=== PATIENT | female | born 1935 | race Caucasian/White ===

== ENCOUNTER 2018-07-27 17:13 | Inpatient (IN) | payer BC, OTHER ==
[~2018-07-27] VITALS: Ht 162.6 cm; Wt 54.9 kg
--- NOTE | 2018-07-27 17:45 | NUR ---
Patient came in for left leg swelling x3days, found to have HR of 155 with rhythm of a.fib. Dr. Bess made aware. Patient placed on the monitor, awaiting for MD fregoso. Denies pain at this time, patient asymptomatic.
[2018-07-27] MEDS ORDERED: DILTIAZEM HCL 50 MG IV IV ONE ×7 (18:00→21:00)
[2018-07-27] MEDS ORDERED: DILTIAZEM HCL 25 MG IV ONE ×2 (18:02→20:07)
[2018-07-27 18:10] LABS: BASOPHILS % (AUTO) 0.2 % (0.0-2.0); HEMATOCRIT 43 % (33-45); HEMOGLOBIN 14.4 g/dL (11.5-14.8); LYMPHOCYTES # (AUTO) 0.4 /CMM (0.8-4.8); MEAN CORPUSCULAR HGB CONC 34 g/dl (31.0-36.0); MEAN CORPUSCULAR VOLUME 104 fL (82-100); MONOCYTES # (AUTO) 0.7 /CMM (0.1-1.30); MONOCYTES % (AUTO) 5.9 % (2.0-12.0); NEUTROPHILS # (AUTO) 11.1 /CMM (1.8-8.9); NEUTROPHILS % (AUTO) 90.9 % (43.0-81.0); PLATELET COUNT (AUTO) 149 /CMM (150-450); RED BLOOD CELL COUNT(AUTO) 4.13 MIL/uL (4.0-5.2); WHITE BLOOD COUNT (AUTO) 12.2 K/uL (4.3-11.0)
[2018-07-27 18:17] LABS: MAGNESIUM 2.2 mg/dL (1.8-2.4)
[2018-07-27 18:18] LABS: CALCIUM, SERUM 9.1 mg/dL (8.5-10.1); CARBON DIOXIDE 21 mmol/L (21-32); CHLORIDE 102 mmol/L (98-107); CREATININE 1.2 mg/dL (0.6-1.3); GLUCOSE 121 mg/dL (74-106); POTASSIUM 3.8 mmol/L (3.5-5.1); SODIUM SERUM 138 mmol/L (136-145); UREA NITROGEN, BLOOD 53 mg/dL (7-18)
--- NOTE | 2018-07-27 18:28 | NUR ---
PATIENT'S HR STILL ELEVATED RANGES FROM 140-150S, DR. MASTERS MADE AWARE AND RECEIVED ORDER TO GIVE ANOTHER DOSE OF CARDIZEM 5MG AND TO REPEAT VITALS AFTER 15 MINUTES. PATIENT ASYMPTOMATIC, NO DISTRESS, DENIES CHEST PAIN OR DISCOMFORT. US TECH AT BEDSIDE.
[2018-07-27] MEDS ORDERED: IV NS 0.9% 1,000 ML BAG IV ONE (18:30)
[2018-07-27 18:31] LABS: ALANINE AMINOTRANSFERASE 608 U/L (12-78); ALBUMIN 3.6 g/dL (3.4-5.0); ALKALINE PHOSPHATASE 107 U/L (46-116); ASPARTATE AMINOTRANSFERASE 531 U/L (15-37); B-TYPE NATRIURETIC PEPTIDE 15045 PG/ML (0-125); BILIRUBIN,DIRECT 0.8 mg/dL (0.0-0.2); BILIRUBIN,TOTAL 2.4 mg/dL (0.2-1.0); TOTAL PROTEIN, SERUM 6.7 g/dL (6.4-8.2)
--- NOTE | 2018-07-27 18:47 | NUR ---
RECEIVED VERBAL ORDER FROM DR. MASTERS TO GIVE CARDIZEM 5MG AND RECHECK VS AFTER 15 MINUTES. CARDIZEM 5MG IV GIVEN ON 1846. BP 131/93 HR141.
[2018-07-27 18:53] LABS: THYROID STIMULATING HORMONE 3.97 uIU/mL (0.358-3.74)
--- NOTE | 2018-07-27 19:02 | NUR ---
CARLOS PAGED HARDSCAPE FOREMAN KVNG CAROLINA NP
--- NOTE | 2018-07-27 19:20 | NUR ---
ENDORSED TO RESIDENT PHYSICIAN IN RADIOLOGY RN FOR BRADEN. BP AND HR TO BE RECHECKED AT 1922. PATIENT HAS RECEIVED A TOTAL DOSE OF CARDIZEM 20MG IV. IN STABLE CONDITION.
[2018-07-27] MEDS ORDERED: DIGOXIN INJ 0.5 MG/2 ML AMPUL ONE (19:25)
[2018-07-27] MEDS ORDERED: DIGOXIN INJ 0.5 MG/2 ML AMPUL IV ONE (19:30)
--- NOTE | 2018-07-27 20:24 | NUR ---
PT ADMIT TO ROOM 103
[2018-07-27] MEDS ORDERED: IV NS 0.9% 1,000 ML IV PRN (20:28)
[2018-07-27] MEDS ORDERED: Z GUARD REMEDY 2 OZ OINT TP PRN (20:30)
[2018-07-27] MEDS ORDERED: ONDANSETRON HCL/PF 4 MG/2 ML VIAL IVP PRN (20:30)
[2018-07-27] MEDS ORDERED: MAG HYDROX/AL HYDROX/SIMETH 30 ML UDC PO PRN (20:30)
[2018-07-27] MEDS ORDERED: MAGNESIUM HYDROXIDE 30 ML UDC PO PRN (20:30)
[2018-07-27] MEDS ORDERED: ACETAMINOPHEN 325 MG TABLET PO PRN (20:30)
[2018-07-27] MEDS ORDERED: HYDROCODONE/APAP 5/325MG 1 EACH TABLET PO PRN (20:30)
[2018-07-27] MEDS ORDERED: PANTOPRAZOLE 40 MG VIAL ONE (20:53)
[2018-07-27] MEDS: PANTOPRAZOLE 40 MG VIAL IV SCH (20:53)
--- NOTE | 2018-07-27 21:05 | NUR ---
ELHAM WILL BE TRANSFER TO [facility] UNIT ROOM 103 REPORT GIVEN TO ELENI. DILTIAZEM GIVEN EVERY 15 MIN. PER MD. HR RANGE TO 120'S - 140'S UPTO 150'S. PATIENT REMAINED AOX3 DENIES PAIN AT THIS TIME. REMAINED A-FIB ON TELE MONITOR. FAMILY AWARE THAT SANDOR WILLBE TRANSFER.
--- NOTE | 2018-07-27 21:09 | NUR ---
ECHO DONE AT BEDSIDE
[2018-07-27] MEDS ORDERED: DILTIAZEM HCL 25 MG IV IV ONE (21:30)
--- NOTE | 2018-07-27 21:36 | NUR ---
INITIAL ECHO SHOWED EF 30-35% WITH TRACE PERICARDIAL EFFUSION. ADVISED DR. MASTERS OF PRELIMINARY RESULTS.
[2018-07-27] MEDS ORDERED: DILTIAZEM HCL 50 MG IV ONE ×2 (21:53)
[2018-07-27] MEDS: DILTIAZEM HCL IV 125 MG in IV D5W 100 ML IV PRN (22:09)
[2018-07-28] VITALS (9 sets, daily range): BP systolic 104–142; BP diastolic 57–79
--- NOTE | 2018-07-28 00:46 | NUR ---
SANDOR TRANSFERRED TO [facility] FLOOR IN ROOM 103. NO CHANGE OF MENTAL STATUS DENIES PAIN, NO CHEST PAIN .NO SOB. LEFT WITH CARDIZEM DRIP. ENDORSED CONTINUITY OFCARE TO ELENI ARMSTRONG
--- NOTE | 2018-07-28 00:47 | NUR ---
[facility] RN NOTE PATIENT RECEIVED IN [facility] A/O X 4. PATIENT DENIES ACUTE S/S OF DISTRESS. PATIENT DENIES CHEST/ /SOB. PATIENT BREATHING EVEN UNLABORED. PATIENT HAS 20 G IN RAC, 22 G PLACED IN LFA, PATIENT RUNNING 75 ML/HR IN LFA, 15 ML/HR CARDIZEM DRIP RAC. NO S.S OF INFILTRATION/INFECTION. PATIENT HR 129 ON ADMISSION BP 112/79. PER MD ORDER HOLD CARDIZEM IF HR BELOW 80 AND SBP BELOW 100. PATIENT DENIES PAIN/ DISCOMFORT AT THIS TIME. PATIENT SKIN NOTED TO HAVE SACRAL REDNESS. MEPILEX APPLIED. PATIENT ABLE TO MOVE INDEPENDENTLY IN BED. RN WILL CONTINUE TO MONITOR.
--- NOTE | 2018-07-28 01:00 | NUR ---
RN NOTES SPOKE TO KVNG CAROLINA NP REGARDING ADMIT TO: ORDERS FOR TELEMETRY STATUS. SINCE PATIENT IS ON CARDIZEM GTT, OK TO UPGRADE TO [facility] STATUS PER PROTOCOL
--- NOTE | 2018-07-28 02:08 | NUR ---
[facility] RN NOTE CALLED OPERATING ROOM MANAGER KVNG REGAURDING POSSIBLE ANTICOAGULATION FOR VTE RISK SCORE OF 3. PER OPERATING ROOM MANAGER H&P NOTES/ AND OPERATING ROOM MANAGER VERBALIZATION, PATIENT HAS POSSIBLE GIB HOLD ANTICOAGULATION UNTIL GIB RULE OUT.
[2018-07-28] MEDS ORDERED: DILTIAZEM HCL 25 MG IV ONE ×2 (04:40→04:41)
[2018-07-28] MEDS: DILTIAZEM HCL IV 125 MG in IV D5W 100 ML IV PRN (06:31)
[2018-07-28 06:40] LABS: CALCIUM, SERUM 8.3 mg/dL (8.5-10.1); CARBON DIOXIDE 22 mmol/L (21-32); CHLORIDE 110 mmol/L (98-107); CREATININE 0.8 mg/dL (0.6-1.3); GLUCOSE 84 mg/dL (74-106); POTASSIUM 3.5 mmol/L (3.5-5.1); SODIUM SERUM 144 mmol/L (136-145); UREA NITROGEN, BLOOD 40 mg/dL (7-18)
[2018-07-28 06:43] LABS: ALANINE AMINOTRANSFERASE 484 U/L (12-78); ALBUMIN 2.7 g/dL (3.4-5.0); ALKALINE PHOSPHATASE 84 U/L (46-116); ASPARTATE AMINOTRANSFERASE 396 U/L (15-37); BILIRUBIN,DIRECT 0.4 mg/dL (0.0-0.2); BILIRUBIN,TOTAL 1.5 mg/dL (0.2-1.0); MAGNESIUM 1.8 mg/dL (1.8-2.4); PHOSPHORUS 2.7 mg/dL (2.5-4.9); TOTAL PROTEIN, SERUM 5.3 g/dL (6.4-8.2)
[2018-07-28 06:46] LABS: BASOPHILS % (AUTO) 0.1 % (0.0-2.0); EOSINOPHILS % (AUTO) 0.2 % (0.0-6.0); HEMATOCRIT 38 % (33-45); HEMOGLOBIN 12.8 g/dL (11.5-14.8); LYMPHOCYTES # (AUTO) 0.6 /CMM (0.8-4.8); LYMPHOCYTES % (AUTO) 5.2 % (20.0-44.0); MEAN CORPUSCULAR HGB CONC 34 g/dl (31.0-36.0); MEAN CORPUSCULAR VOLUME 103 fL (82-100); MONOCYTES # (AUTO) 0.8 /CMM (0.1-1.30); MONOCYTES % (AUTO) 6.6 % (2.0-12.0); NEUTROPHILS # (AUTO) 10.5 /CMM (1.8-8.9); NEUTROPHILS % (AUTO) 87.9 % (43.0-81.0); PLATELET COUNT (AUTO) 117 /CMM (150-450); RED BLOOD CELL COUNT(AUTO) 3.71 MIL/uL (4.0-5.2)
[2018-07-28 06:49] LABS: CHOLESTEROL 150 mg/dL (<200); HDL CHOLESTEROL 23 mg/dL (40-60); LDL 118 mg/dL (0-99); TRIGLYCERIDES 70 mg/dL (30-150)
--- NOTE | 2018-07-28 07:10 | NUR ---
[facility] RN OPENING NOTES RECEIVED PT LYING ON BED.ALERT/ORIENTED X4.ON TELE HR IS 115-124 WITH A FIB,IV CARDIZEM IS RUNNING WITH 15MG ON LEFT RIGHT ARM G 20.IV FLUIDS IS RUNNING ON LEFT UA G22,SITE IS CLEAN,DRY AND INTACT.NO INFILTRATION NOTED.CAN USE BEDSIDE COMMODE.NO SOB AND ACUTE DISTRESS NOTED ON ROOM AIR.BED IS IN LOW POSITION AND LOCKED.CALL LIGHT IS WITHIN REACH.WILL CONTINUE TO MONITOR THE PT CLOSELY.
[2018-07-28] MEDS: PANTOPRAZOLE 40 MG VIAL IV SCH (08:23)
[2018-07-28] MEDS ORDERED: AMIODARONE 150 MG in IV D5W 100 ML IV ONE (09:30)
[2018-07-28] MEDS ORDERED: APIXABAN 5 MG TABLET PO SCH (09:30)
[2018-07-28] MEDS ORDERED: AMIODARONE 900 MG in IV D5W 500 ML IV PRN (09:30)
[2018-07-28] MEDS ORDERED: VITA1TAB56 PO (09:40)
[2018-07-28] MEDS ORDERED: MULT1TAB73 PO (09:40)
--- NOTE | 2018-07-28 10:00 | NUR ---
[facility] RN NOTES IV AMIODARONE BOLUS 150MG/3ML @618ML/HR IS STARTED @RIGHT AC G20.BP -125/69,HR-150.NO SOB AND ACUTE DISTRESS NOTED.WILL CONTINUE TO MONITOR THE PT CLOSELY.
[2018-07-28] MEDS ORDERED: AMIODARONE 900 MG in IV D5W 482 ML IV PRN (10:30)
--- NOTE | 2018-07-28 10:30 | NUR ---
[facility] RN NOTES IV AMIODARONE 1MG/MT @33.3ML/HR IS STARTED.BP-123/69,HR-125 AND R-18.NO COMPLICATIONS NOTED.
[2018-07-28] MEDS: ALPRAZOLAM 0.25 MG TABLET PO PRN (14:27)
[2018-07-28] MEDS: CHLORHEXIDINE GLUCONATE 4% 118 ML BOTTLE TP SCH ×2 (14:45→16:36)
[2018-07-28] MEDS: RIVAROXABAN 15 MG TABLET PO SCH (16:35)
[2018-07-28 17:30] LABS: OCCULT BLOOD STOOL NEGATIVE (NEGATIVE)
--- NOTE | 2018-07-28 18:51 | NUR ---
[facility] RN CLOSING NOTES PT IS LYING ON BED WITH IV AMIODARONE 900MG @0.5MG/MT IS RUNNING WITH HR IS 122 A FIB.ALERT/ORIENTED X4.IV LINE IS IN PLACE.ON ROOM AIR,TOLERATING WELL.NO SOB AND ACUTE DISTRESS NOTED.RESPIRATION IS EVEN AND NONLABORED.ALL THE DUE MEDS ARE GIVEN.NO SIGNIFICANT CHANGES NOTED IN THE SHIFT.ENDORSED TO ELECTRONIC SYSTEM ENGINEER NATHANIEL FLORES FOR BRADEN.
--- NOTE | 2018-07-28 19:30 | NUR ---
TD RN: RECEIVED PT A/O X 3. ON R/A WT NO ACUTE DISTRESS. NO C/O PAIN. UNCONTROLLED A. FIB ON TELE MONITOR WT HR IN 120s. CONTINUE ON AMIODARONE DRIP AT 0.5MG/MIN WT NO S/S OF IV INFILTRATION. AMBULATORY AND ABLE TO SIT ON BED SIDE COMMODE. HOB AT 35 DEGREES. BED IN LOW POSITION AND LOCKED WT SR UP X 2. CALL LIGHT KEPT WITHIN REACH. WILL CONTINUE TO MONITOR.
[2018-07-29] VITALS: BP 125/73
[2018-07-29 04:00] VITALS: BP 135/62
[2018-07-29 06:26] LABS: BASOPHILS % (AUTO) 0.1 % (0.0-2.0); EOSINOPHILS % (AUTO) 0.3 % (0.0-6.0); HEMATOCRIT 38 % (33-45); HEMOGLOBIN 12.8 g/dL (11.5-14.8); LYMPHOCYTES # (AUTO) 0.5 /CMM (0.8-4.8); LYMPHOCYTES % (AUTO) 3.8 % (20.0-44.0); MEAN CORPUSCULAR HGB CONC 33 g/dl (31.0-36.0); MEAN CORPUSCULAR VOLUME 102 fL (82-100); MONOCYTES # (AUTO) 0.8 /CMM (0.1-1.30); MONOCYTES % (AUTO) 6.9 % (2.0-12.0); NEUTROPHILS # (AUTO) 10.7 /CMM (1.8-8.9); NEUTROPHILS % (AUTO) 88.9 % (43.0-81.0); PLATELET COUNT (AUTO) 101 /CMM (150-450); RED BLOOD CELL COUNT(AUTO) 3.73 MIL/uL (4.0-5.2); WHITE BLOOD COUNT (AUTO) 12.1 K/uL (4.3-11.0)
--- NOTE | 2018-07-29 06:45 | NUR ---
TD RN: TOTAL BAG OF AMIODARONE INFUSED AT THIS TIME. STILL A. FIB CONTROLLED ON TELE MONITOR. REMAINED A/O X 3-4. PLACED ON 2.5L 02 VIA NC FOR C/O OF SHORTNESS OF BREATH ALTHOUGH O2 SAT= 94% AND ABOVE. NO C/O PAIN. ALL NEEDS MET. SAFETY PRECAUTION NOTED AT ALL TIMES.
[2018-07-29 06:48] LABS: ALANINE AMINOTRANSFERASE 459 U/L (12-78); ALBUMIN 2.6 g/dL (3.4-5.0); ALKALINE PHOSPHATASE 99 U/L (46-116); ASPARTATE AMINOTRANSFERASE 314 U/L (15-37); BILIRUBIN,TOTAL 1.3 mg/dL (0.2-1.0); CALCIUM, SERUM 8.3 mg/dL (8.5-10.1); CARBON DIOXIDE 21 mmol/L (21-32); CHLORIDE 106 mmol/L (98-107); CREATININE 0.7 mg/dL (0.6-1.3); GLUCOSE 141 mg/dL (74-106); MAGNESIUM 1.7 mg/dL (1.8-2.4); PHOSPHORUS 1.5 mg/dL (2.5-4.9); POTASSIUM 3.6 mmol/L (3.5-5.1); SODIUM SERUM 137 mmol/L (136-145); TOTAL PROTEIN, SERUM 5.4 g/dL (6.4-8.2); UREA NITROGEN, BLOOD 29 mg/dL (7-18)
--- NOTE | 2018-07-29 07:30 | NUR ---
[facility] RN AM NOTES RECIEVED PT IN BED AO X 3-4, PT ON 2.5 LITERS BY NASAL CANNULA NO SOB, RESPIRATION- UNLABORED, AFIB KILLIAN RATE OF 130 ON MONITER, DENIES CHEST PAIN/ DISCOMFORT, RIGHT FOREARM GAUGE 20 FLUSHES WELL, SITE CLEAR, ON REGULAR CARDIAC DIET, SEE NURSING FLOW SHEET FOR SKIN ISSUES, USES BSC, UP WITH ASSIST, SAFETY MEASURES IN PLACE, CALL LIGHT WITHIN REACH, WILL CONTINUE TO MONITER
[2018-07-29 08:00] VITALS: BP 132/74
--- NOTE | 2018-07-29 09:30 | NUR ---
[facility] RN NOTES DUE MEDS GIVEN
[2018-07-29] MEDS: CHLORHEXIDINE GLUCONATE 4% 118 ML BOTTLE TP SCH ×3 (09:41→17:53)
[2018-07-29] MEDS ORDERED: Magnesium 1GM/D5W 100ML PREMIX 100 ML IV SCH (10:34)
--- NOTE | 2018-07-29 10:36 | NUR ---
FURNACE KEEPER NOTES TRANSFER TO TELEMETRY PER DR. DENISE
--- NOTE | 2018-07-29 11:00 | NUR ---
HYDROGRAPHICAL TECHNICAL OFFICER NOTES PT PLACED ON NPO FOR SCHEDULED MRCP AT 1300
[2018-07-29] MEDS: POTASSIUM CHLORIDE 20 MEQ TAB.PRT.SR PO SCH ×3 (11:05→14:38)
[2018-07-29] MEDS: FUROSEMIDE 40 MG/4 ML VIAL IV SCH ×3 (11:07→17:43)
[2018-07-29] MEDS: Magnesium 1GM/D5W 100ML PREMIX 100 ML IV SCH ×2 (11:08→12:42)
[2018-07-29] MEDS: IPRATROPIUM NEB FS 0.5 MG/2.5 ML AMPUL.NEB NEB SCH ×3 (11:30→19:29)
[2018-07-29 12:00] VITALS: BP 129/80
[2018-07-29] MEDS ORDERED: K PHOS NEUTRAL 250 MG TABLET PO ONE (12:00)
[2018-07-29] MEDS: DIGOXIN INJ 0.5 MG/2 ML AMPUL IV SCH ×2 (12:46→17:47)
[2018-07-29 16:00] VITALS: BP_SYST 130; BP_SYST 133; BP_DIAS 75; BP_DIAS 86
[2018-07-29] MEDS: RIVAROXABAN 15 MG TABLET PO SCH (17:52)
--- NOTE | 2018-07-29 19:30 | NUR ---
CASHIER TICKET SELLING NOTES ALL NEEDS MET. STABLE. NO OTHER SIGNIFICANT CHANGE IN CONDITION. NOT IN ANY DISTRESS. SAFETY MEASURES IN PLACE. CALL LIGHT WITHIN REACH. WILL ENDORSE TO NEXT SHIFT.
[2018-07-29 20:00] VITALS: BP 132/70
--- NOTE | 2018-07-29 20:00 | NUR ---
television production technician notes received pts in bed awake alert and responsive able to make needs known , on tele afib on the monitor , no sob no distress noted , v/s stable afebrile , all needs attended too pts with no complain of pain , kept pts clean dry and comfortable.
[2018-07-30] VITALS: BP 138/74
[2018-07-30] MEDS: IPRATROPIUM NEB FS 0.5 MG/2.5 ML AMPUL.NEB NEB SCH ×4 (00:46→19:33)
[2018-07-30] MEDS ORDERED: DIGOXIN INJ 0.5 MG/2 ML AMPUL ONE (02:41)
[2018-07-30] MEDS: DIGOXIN INJ 0.5 MG/2 ML AMPUL IV SCH (02:45)
[2018-07-30 04:00] VITALS: BP 126/69
[2018-07-30 06:37] LABS: EOSINOPHILS % (AUTO) 0.2 % (0.0-6.0); HEMATOCRIT 39 % (33-45); HEMOGLOBIN 13.2 g/dL (11.5-14.8); LYMPHOCYTES # (AUTO) 0.3 /CMM (0.8-4.8); LYMPHOCYTES % (AUTO) 2.4 % (20.0-44.0); MEAN CORPUSCULAR HGB CONC 34 g/dl (31.0-36.0); MEAN CORPUSCULAR VOLUME 102 fL (82-100); MONOCYTES % (AUTO) 7.8 % (2.0-12.0); NEUTROPHILS # (AUTO) 11.3 /CMM (1.8-8.9); NEUTROPHILS % (AUTO) 89.6 % (43.0-81.0); PLATELET COUNT (AUTO) 108 /CMM (150-450); RED BLOOD CELL COUNT(AUTO) 3.82 MIL/uL (4.0-5.2); WHITE BLOOD COUNT (AUTO) 12.6 K/uL (4.3-11.0)
[2018-07-30 06:40] LABS: ALANINE AMINOTRANSFERASE 364 U/L (12-78); ALBUMIN 2.3 g/dL (3.4-5.0); ALKALINE PHOSPHATASE 81 U/L (46-116); ASPARTATE AMINOTRANSFERASE 179 U/L (15-37); BILIRUBIN,TOTAL 1.3 mg/dL (0.2-1.0); CALCIUM, SERUM 8.2 mg/dL (8.5-10.1); CARBON DIOXIDE 26 mmol/L (21-32); CHLORIDE 106 mmol/L (98-107); CREATININE 0.7 mg/dL (0.6-1.3); GLUCOSE 103 mg/dL (74-106); MAGNESIUM 1.6 mg/dL (1.8-2.4); PHOSPHORUS 2.2 mg/dL (2.5-4.9); POTASSIUM 3.4 mmol/L (3.5-5.1); SODIUM SERUM 143 mmol/L (136-145); TOTAL PROTEIN, SERUM 5.4 g/dL (6.4-8.2); UREA NITROGEN, BLOOD 27 mg/dL (7-18)
--- NOTE | 2018-07-30 07:19 | NUR ---
telephone clerk telegraph office notes pts remain in bed asleep , no sob no distress noted ,on tele afib on the monitor , will endorse to rn day shift for continuity of care .
[2018-07-30 08:00] VITALS: BP 115/59
[2018-07-30] MEDS: POTASSIUM CHLORIDE 20 MEQ TAB.PRT.SR PO SCH ×3 (09:13→11:19)
[2018-07-30] MEDS: CHLORHEXIDINE GLUCONATE 4% 118 ML BOTTLE TP SCH ×3 (09:25→17:15)
[2018-07-30] MEDS: FUROSEMIDE 40 MG/4 ML VIAL IV SCH ×3 (09:32→17:17)
[2018-07-30] MEDS: Magnesium 1GM/D5W 100ML PREMIX 100 ML IV SCH ×2 (10:19→10:36)
[2018-07-30 12:00] VITALS: BP 133/83
[2018-07-30] MEDS ORDERED: K PHOS NEUTRAL 250 MG TABLET PO ONE (13:00)
[2018-07-30] MEDS: METOPROLOL TARTRATE 50 MG TABLET PO SCH ×2 (13:02→18:22)
[2018-07-30] MEDS: DIGOXIN 0.125 MG TABLET PO SCH (13:02)
[2018-07-30] MEDS: CEFTRIAXONE 1 G in IV D5W 50 ML IV SCH (15:36)
[2018-07-30 16:00] VITALS: BP 138/68
[2018-07-30] MEDS: RIVAROXABAN 15 MG TABLET PO SCH (17:17)
--- NOTE | 2018-07-30 18:49 | NUR ---
CLOSING: PT ALERT MILITARY EQUIPMENT SPECIALIST AT BEDSIDE AND FAMILY PRESENT PT DISCHARGED TO [facility] PACER INTERROGATED ETA LIQUOR MAKER 2029 WILL ENDORSE CARE TO PM PANCHO RN FOR CONTINUITY OF CARE Addendum: 07/30/18 at 1852 by RENATO BELTRAN RN PT TO CONTINUE IN HOSPITAL FOR FURTHER TREATMENT NOT GOING TO [facility] PT DOES NOT HAVE A PACRE
--- NOTE | 2018-07-30 19:10 | NUR ---
TELE/RN INITIAL NOTES RECEIVED PT IN BED, ASLEEP, AROUSABLE TO NAME AND TOUCH. NO C/O PAIN AT THIS TIME. ON 2L O2 VIA NC. AFIB HR 110S ON TELE. RFA G20 HEPLOCK PATENT, C/D/I. SAFETY MEASURES IN PLACED. CALL LIGHT WITHIN EASY REACH. WILL CONT TO MONITOR
[2018-07-30 20:00] VITALS: BP 132/62
[2018-07-31] VITALS: BP 123/71
[2018-07-31] MEDS: METOPROLOL TARTRATE 50 MG TABLET PO SCH ×4 (00:46→17:39)
[2018-07-31] MEDS: IPRATROPIUM NEB FS 0.5 MG/2.5 ML AMPUL.NEB NEB SCH ×4 (01:17→20:06)
[2018-07-31 04:00] VITALS: BP 125/71
[2018-07-31 04:07] LABS: CMV, IgM 37.9 AU/mL (0.0-29.9)
--- NOTE | 2018-07-31 07:00 | NUR ---
RN NOTES PT IN STABLE CONDITION. NO ACUTE CHANGES THROUGHOUT SHIFT. ALL NEEDS ANTICIPATED. SAFETY MEASURES OBSERVED AT ALL TIMES. ENDORSED TO AM SHIFT RN FOR BRADEN
--- NOTE | 2018-07-31 07:20 | NUR ---
RN OPENING NOTES TELE RECEIVED REPORT FROM ROADMASTER RN. PT IS AWAKE AND ALERT AND DENIES ANY OR SOB AT PRESENT MOMENT. PT IS ON MONITOR CONTROLLED AFIB 99. PT IS IN BED AND SITTING. BED IS LOCKED AND IN LOWEST POSITION WILL CONTINUE TO MONITOR.
[2018-07-31 07:26] LABS: CALCIUM, SERUM 8.2 mg/dL (8.5-10.1); CARBON DIOXIDE 29 mmol/L (21-32); CHLORIDE 103 mmol/L (98-107); CREATININE 0.6 mg/dL (0.6-1.3); GLUCOSE 99 mg/dL (74-106); PHOSPHORUS 2.7 mg/dL (2.5-4.9); POTASSIUM 3.2 mmol/L (3.5-5.1); SODIUM SERUM 140 mmol/L (136-145); UREA NITROGEN, BLOOD 25 mg/dL (7-18)
[2018-07-31 08:00] VITALS: BP 103/74
[2018-07-31] MEDS: POTASSIUM CHLORIDE 20 MEQ TAB.PRT.SR PO SCH ×2 (09:30→11:03)
[2018-07-31] MEDS: CHLORHEXIDINE GLUCONATE 4% 118 ML BOTTLE TP SCH ×3 (09:32→17:41)
[2018-07-31] MEDS: DIGOXIN 0.125 MG TABLET PO SCH (12:59)
[2018-07-31] MEDS: CEFTRIAXONE 1 G in IV D5W 50 ML IV SCH (13:00)
[2018-07-31] MEDS: AZITHROMYCIN 500 MG in IV D5W 250 ML IV SCH (14:56)
[2018-07-31 16:00] VITALS: BP 124/68
[2018-07-31] MEDS: RIVAROXABAN 15 MG TABLET PO SCH (17:40)
--- NOTE | 2018-07-31 19:07 | NUR ---
RN CLOSING NOTES GAVE REPORT TO READING TEACHER RN. PT IS AWAKE AND ALERT AND DENIES ANY OR SOB AT PRESENT MOMENT. PT IS ON MONITOR CONTROLLED AFIB 99. PT IS IN BED AND SITTING. BED IS LOCKED AND IN LOWEST POSITION. WILL ENDORSE CONTINUITY OF CARE TO READING TEACHER RN.
--- NOTE | 2018-07-31 19:10 | NUR ---
MS/RN INITIAL NOTES RECEIVED PT IN BED, A/OX3. NO C/O PAIN AT THIS TIME. ON 2L O2 VIA NC. RFA G22 HEPLOCK PATENT, C/D/I. SAFETY MEASURES IN PLACED. CALL LIGHT WITHIN EASY REACH. WILL CONT TO MONITOR
[2018-07-31 20:00] VITALS: BP 134/76
[2018-07-31] MEDS: ALPRAZOLAM 0.25 MG TABLET PO PRN (20:37)
[2018-08-01] MEDS: METOPROLOL TARTRATE 50 MG TABLET PO SCH ×5 (00:22→23:25)
[2018-08-01] MEDS: IPRATROPIUM NEB FS 0.5 MG/2.5 ML AMPUL.NEB NEB SCH ×4 (02:18→19:21)
[2018-08-01 04:00] VITALS: BP 93/66
--- NOTE | 2018-08-01 07:20 | NUR ---
MS RN OPENING NOTE RECEIVED PT IN BED, ASLEEP, BUT EASY TO AROUSE BY CALLING NAME AND LIGHT TOUCH. ON 2L NC, TOLERATING WELL. NO SOB AND CARDIAC DISTRESS NOTED. RFA G22 PATENT, C/D/I. SAFETY MEASURES IN PLACE, CALL LIGHT WITHIN EASY REACH. BED LOCKED AND IN LOWEST POSITION. PT STATED SHE WOULD LIKE TO GO TO REHAB FOR BRADEN. WILL TALK TO BRINE WELL OPERATOR ABOUT IT. WILL CONT TO MONITOR.
[2018-08-01 08:00] VITALS: BP_SYST 135; BP_SYST 93; BP_DIAS 66; BP_DIAS 70
[2018-08-01] MEDS: CHLORHEXIDINE GLUCONATE 4% 118 ML BOTTLE TP SCH ×3 (09:00→17:15)
[2018-08-01] MEDS ORDERED: POTASSIUM CHLORIDE 20 MEQ POWDER PACKET PO ONE (12:00)
[2018-08-01] MEDS: DIGOXIN 0.125 MG TABLET PO SCH (12:48)
[2018-08-01] MEDS: CEFTRIAXONE 1 G in IV D5W 50 ML IV SCH (14:24)
[2018-08-01] MEDS: AZITHROMYCIN 500 MG in IV D5W 250 ML IV SCH (14:55)
[2018-08-01 16:00] VITALS: BP 130/81
[2018-08-01] MEDS: RIVAROXABAN 15 MG TABLET PO SCH (17:18)
--- NOTE | 2018-08-01 19:15 | NUR ---
MS RN CLOSING NOTE PT RESTING IN BED. ALERT AND ORIENTED X3. ON 2L NC, TOLERATING WELL. NO SOB AND CARDIAC DISTRESS NOTED. RFA G22 PATENT, SALINE LOCK, SITE C/D/I. SAFETY MEASURES IN PLACE THROUGHOUT SHIFT. NO ACUTE CHANGES THROUGHOUT SHIFT. ALL MD ORDERS ATTENDED. ENDORSED TO [place] STUDIES PROFESSOR NURSE FOR BRADEN.
--- NOTE | 2018-08-01 19:30 | NUR ---
MS RN NOTE PATIENT REPORT GIVEN BEDSIDE. PATIENT IN BED SLEEPING. PATIENT BREATHING EVEN UNLABORED. PATIENT AWAKENED AND A/O X 3. PATIENT HAS NO S/S OF ACUTE DISTRESS AT THIS TIME. PATIENT DENIES CHEST PAIN/SOB. PATIENT HAS RFA 22 G PATENT INTACT NO S/S OF INFECTION AND INFILTRATION. SAFETY PRECAUTIONS IN PLACE. RN WILL CONTINUE TO MONITOR.
[2018-08-02] VITALS: BP 126/70
[2018-08-02] MEDS: IPRATROPIUM NEB FS 0.5 MG/2.5 ML AMPUL.NEB NEB SCH ×4 (00:32→19:34)
[2018-08-02] MEDS: METOPROLOL TARTRATE 50 MG TABLET PO SCH ×4 (06:35→23:27)
--- NOTE | 2018-08-02 06:51 | NUR ---
HAND SILVERING SUPERVISOR NOTE PATIENT TOLERATED THE NIGHT WELL. NOT ACUTE CHANGES THROUGH THE NIGHT, ALL CARE RENDERED. SAFETY PRECAUTIONS IN PLACE. ENDORSED POC TO AM FOR BRADEN.
--- NOTE | 2018-08-02 07:25 | NUR ---
RN OPENING NOTES RECEIVED PATIENT IN BED ASLEEP, BUT EASILY AROUSABLE. DX WITH AFIB. NO COMPLAINS OF ANY PAIN OR SOB AT THIS TIME. ON 2L NC O2. PATIENT AMBULATORY WITH ASSIST AND USES THE COMMODE PER NOC SHIFT. HAS RIGHT FA #22 SALINE LOCKED. NOC SHIFT RN ORDERED A WOUND CONSULT FOR SACRAL REDNESS. FROM REPORT, PATEINT'S SACRAL ON ADMISSION WAS JUST RED, LAST NIGHT IT HAS WHITE FLAKES. DC PLANNING FOR PATIENT, JUST WAITING FOR PLACEMENT AT [facility] OR GOING HOME WITH SON. PATIENT'S BED LOCKED AND IN LOWEST POSITION. CALL LIGHT WITHIN REACH. WILL CONT TO MONITOR.
[2018-08-02 07:33] LABS: BASOPHILS % (AUTO) 0.2 % (0.0-2.0); EOSINOPHILS % (AUTO) 1.7 % (0.0-6.0); HEMATOCRIT 39 % (33-45); LYMPHOCYTES # (AUTO) 0.5 /CMM (0.8-4.8); LYMPHOCYTES % (AUTO) 5.4 % (20.0-44.0); MEAN CORPUSCULAR HGB CONC 33 g/dl (31.0-36.0); MEAN CORPUSCULAR VOLUME 103 fL (82-100); MONOCYTES % (AUTO) 11.8 % (2.0-12.0); NEUTROPHILS # (AUTO) 6.9 /CMM (1.8-8.9); NEUTROPHILS % (AUTO) 80.9 % (43.0-81.0); PLATELET COUNT (AUTO) 205 /CMM (150-450); WHITE BLOOD COUNT (AUTO) 8.5 K/uL (4.3-11.0)
[2018-08-02 07:39] LABS: CALCIUM, SERUM 8.5 mg/dL (8.5-10.1); CARBON DIOXIDE 31 mmol/L (21-32); CHLORIDE 104 mmol/L (98-107); CREATININE 0.6 mg/dL (0.6-1.3); GLUCOSE 99 mg/dL (74-106); LIPASE 227 U/L (73-393); POTASSIUM 3.8 mmol/L (3.5-5.1); SODIUM SERUM 139 mmol/L (136-145); UREA NITROGEN, BLOOD 20 mg/dL (7-18)
[2018-08-02 08:00] VITALS: BP 132/72
[2018-08-02] MEDS: CHLORHEXIDINE GLUCONATE 4% 118 ML BOTTLE TP SCH ×3 (08:54→17:33)
[2018-08-02 09:00] VITALS: BP 132/72
--- NOTE | 2018-08-02 09:13 | NUR ---
WOUND CARE CONSULT: PT PRESENTS WITH DRY LESION TO CHIN AND BLANCHABLE REDNESS TO SACRUM AND THICKENED SKIN NOTED TO LOWER BUTTOCKS, PRESENT ON ADMISSION. RECOMMENDATIONS MADE FOR SKIN PROTECTION. DISCUSSED WITH NURSING STAFF. DEFER TO MD FOR CHIN LESION. PT CONTINENT AT THIS TIME. WILL SEE PRN. CURRENT JAMES SCORE IS 19. MD IN AGREEMENT WITH PLAN OF CARE. Addendum: 08/02/18 at 0916 by RADHA MARTINEZ WNDNU Amended: Links added.
--- NOTE | 2018-08-02 09:33 | NUR ---
RN NOTE PATIENT WAS SEEN BY WOUND CARE NURSE, RADHA. PATIENT PRESENTS WITH DRY LESION TO CHIN, WILL LET MD AWARE. ALSO, BLANCHABLE REDNESS TO SACRUM AND THICKENED SKIN NOTED TO LOWER BUTTOCKS, PRESENT ON ADMISSION. RECOMMENDATIONS MADE FOR SKIN PROTECTION SUCH Z GUARD AND MEPILEX. EDUCATED THE PATIENT TO OFFLOAD BUTTOCKS WELL.
[2018-08-02] MEDS: DIGOXIN 0.125 MG TABLET PO SCH (12:27)
--- NOTE | 2018-08-02 12:30 | NUR ---
RN NOTE REMINDED PATIENT TO REPOSITION HERSELF TO PREVENT PRESSURE ULCERS
[2018-08-02] MEDS: AZITHROMYCIN 250 MG TABLET PO SCH (14:26)
[2018-08-02] MEDS: CEFTRIAXONE 1 G in IV D5W 50 ML IV SCH (14:26)
[2018-08-02 16:00] VITALS: BP 114/70
--- NOTE | 2018-08-02 17:06 | NUR ---
RN NOTE INSERTED A NEW LINE ON PATIENT, OLD LINE WAS INFILTRATED AND LEAKING. NEW IV SITE RIGHT FORE ARM #20 SALINE LOCKED.
[2018-08-02] MEDS: RIVAROXABAN 15 MG TABLET PO SCH (17:32)
--- NOTE | 2018-08-02 19:09 | NUR ---
RN CLOSING NOTE PATIENT STABLE THROUGHOUT THE SHIFT. ALL MEDS GIVEN. NO COMPLAINS OF ANYTHING. ATE >75% B,L,D. WILL ENDORSE TO NOC SHIFT RN
[2018-08-02 20:00] VITALS: BP 109/74
--- NOTE | 2018-08-02 20:08 | NUR ---
RN OPENING NOTES RECEIVED REPORT FROM HORTENCIA ARMSTRONG. PATIENT A/A/O X3, ABLE TO MAKE NEEDS KNOWN. BREATHING EVEN & UNLABORED, TOLERATING 02 @ 2LPM VIA NC. DENIES NAY SOB OR DIFFICULTY BREATHING. RADIAL PULSES PRESENT. RIGHT FOREARM IV #20 INTACT & PATENT W/ DRESSING CDI, SALINE LOCKED. DENIES ANY PAIN OR DISCOMFORT @ THIS TIME. SAFETY MEASURES IN PLACE W/ SIDE RAILS UP & BED ALARM ON. ABLE TO USE BEDSIDE COMMODE W/ ASSIST & INSTRUCTED TO USE CALL LIGHT. WILL CONTINUE TO MONITOR.
[2018-08-03] MEDS: IPRATROPIUM NEB FS 0.5 MG/2.5 ML AMPUL.NEB NEB SCH ×4 (01:46→19:39)
[2018-08-03 04:00] VITALS: BP 143/67
[2018-08-03] MEDS: METOPROLOL TARTRATE 50 MG TABLET PO SCH ×3 (05:56→17:12)
[2018-08-03 08:00] VITALS: BP 128/64
[2018-08-03] MEDS: CHLORHEXIDINE GLUCONATE 4% 118 ML BOTTLE TP SCH ×3 (08:34→16:40)
--- NOTE | 2018-08-03 08:38 | NUR ---
MS RN NOTES RECEIVED PT IN BED ALERT AND ORIENTED X3. IV SITE ON RFA #22 INTACT AND PATENT. NO S/S OF INFECTION. PLAN OF CARE DISCUSSED. RT AT BEDSIDE BREATHING TX GIVEN. CALL LIGHT WITHIN REACHED. NO SOB NOTED. BED LOCKED AND IN LOW POSITION. SAFETY MEASURES OBSERVED. WILL CONTINUE TO MONITOR CLOSELY. PT HAVING BREAKFAST. ABLE TO FEED SELF.
--- NOTE | 2018-08-03 10:14 | NUR ---
MS RN NOTE AMBULATED WELL WITH PT WELL NEEDS MIN ASSONANCE AT THIS TIME
[2018-08-03] MEDS: DIGOXIN 0.125 MG TABLET PO SCH (12:50)
[2018-08-03] MEDS: AZITHROMYCIN 250 MG TABLET PO SCH (13:41)
[2018-08-03] MEDS: CEFTRIAXONE 1 G in IV D5W 50 ML IV SCH (13:42)
--- NOTE | 2018-08-03 13:49 | NUR ---
MS RN NOTE SON AND MIR ARMSTRONG BUSINESS ADMINISTRATION PROFESSOR AT BEDSIDE DISCUSSED FURTHER CARE, WILL CONT TO MONITOR CLOSELY
--- NOTE | 2018-08-03 15:21 | NUR ---
MS RN NOTE CT CHEST DONE ORDERED ,WILL CONT TO MONITOR CLOSELY
[2018-08-03 16:00] VITALS: BP 136/78
[2018-08-03] MEDS: RIVAROXABAN 15 MG TABLET PO SCH (16:40)
--- NOTE | 2018-08-03 18:55 | NUR ---
MS RN CLOSING NOTES PATIENT IN BED AWAKE ALERT AND ABLE TO MAKE NEED KNOWN. ALERT AND ORIENTED X3. PATIENT CONTINUES ON 2L NC, ABLE TOLERATE IT WELL. NO SOB. NO PAIN OR ACUTE DISTESS AT THIS TIME. PATIENT HAS IV ON RIGHT FOREARM #22 PATENT AND INTACT. NO S/S OF INFECTION. SAFETY MEASURES IN PLACE THROUGHOUT SHIFT. NO ACUTE CHANGES THROUGHOUT SHIFT. ALL NEED ANTICIPATED. WILL CONTINUE PLAN OF CARE. ENDORSED TO CABLE TOWER OPERATOR NURSE FOR BRADEN.
--- NOTE | 2018-08-03 19:30 | NUR ---
MS RN NOTE: RECEIVED PT ON BED AWAKE, ALERT AND ORIENTED X3. ABLE TO MAKE NEEDS KNOWN. NO APPARENT DISTRESS NOTED. DENIES PAIN AND DISCOMFORT AT THIS TIME. ON 2LPM NASAL CANNULA, BREATHING EVEN AND UNLABORED WITH NORMAL RESPIRATIONS. IV ON RIGHT FOREARM #22 INTACT AND PATENT, FLUSHING WELL. NO SIGNS/SYMPTOMS OF INFILTRATION NOTED. CALL LIGHT PLACED WITHIN REACH. KEPT CLEAN, DRY AND COMFORTABLE. SAFETY AND FALL PRECAUTIONS OBSERVED AND MAINTAINED. WILL CONTINUE TO MONITOR PT.
[2018-08-03 20:00] VITALS: BP 153/77
[2018-08-04] MEDS: METOPROLOL TARTRATE 50 MG TABLET PO SCH ×3 (00:13→12:47)
[2018-08-04] MEDS: IPRATROPIUM NEB FS 0.5 MG/2.5 ML AMPUL.NEB NEB SCH ×3 (01:39→13:30)
[2018-08-04 04:00] VITALS: BP 131/90
--- NOTE | 2018-08-04 06:33 | NUR ---
MS RN NOTE: NO CHANGES NOTED THROUGHOUT THE SHIFT. NO APPARENT DISTRESS NOTED. NO COMPLAINTS OF PAIN OR DISCOMFORT AT THIS TIME. NO SOB NOTED. IV ON RIGHT FOREARM #22 INTACT AND PATENT, FLUSHING WELL. PT WAS ABLE TO TRANSFER HERSELF TO BEDSIDE COMMODE. CALL LIGHT PLACED WITHIN REACH. KEPT CLEAN, DRY AND COMFORTABLE. SAFETY AND FALL PRECAUTIONS OBSERVED AND MAINTAINED. WILL ENDORSE TO DAY SHIFT RN FOR CONTINUITY OF CARE.
[2018-08-04 08:00] VITALS: BP 137/62
[2018-08-04] MEDS: CHLORHEXIDINE GLUCONATE 4% 118 ML BOTTLE TP SCH (09:00)
[2018-08-04] MEDS: DIGOXIN 0.125 MG TABLET PO SCH (12:47)
[2018-08-04] MEDS ORDERED: AZIT250T PO (13:45)
[2018-08-04] MEDS ORDERED: METO25TA6 PO (13:45)
[2018-08-04] MEDS ORDERED: IPRA12.9 INH (13:45)
[2018-08-04] MEDS ORDERED: DIGO125T PO (13:45)
[2018-08-04] MEDS ORDERED: LEVO500T75 PO (13:45)
[2018-08-04] MEDS ORDERED: RIVA10TA PO (13:45)
--- NOTE | 2018-08-04 14:33 | NUR ---
patient refused to take photo of her sacrum before discharge .
== END 2018-08-04 14:33 | disposition home health service (06) | DRG 280 ==
LOC: ER 17:13 → TELE1 20:33 → TELE-TD 07-28 01:08 → TELE1 07-29 10:50 → MEDSG1 07-31 09:14
PROVIDERS: ADMIT Nurse Practitioner Acute Care; ATTEND Nurse Practitioner Acute Care
DX: I48.91 Unspecified atrial fibrillation (principal); K72.00 Acute and subacute hepatic failure without coma; I21.A1 Myocardial infarction type 2; N17.0 Acute kidney failure with tubular necrosis; K85.90 Acute pancreatitis without necrosis or infection, unspecified; J15.9 Unspecified bacterial pneumonia; E44.0 Moderate protein-calorie malnutrition; J90 Pleural effusion, not elsewhere classified; J98.11 Atelectasis; I50.30 Unspecified diastolic (congestive) heart failure; D68.9 Coagulation defect, unspecified; I48.92 Unspecified atrial flutter; J44.9 Chronic obstructive pulmonary disease, unspecified; D69.6 Thrombocytopenia, unspecified; E83.42 Hypomagnesemia; E83.39 Other disorders of phosphorus metabolism; E03.9 Hypothyroidism, unspecified; Z87.891 Personal history of nicotine dependence; R74.0 Nonspecific elevation of levels of transaminase and lactic acid dehydrogenase [LDH]; E02 Subclinical iodine-deficiency hypothyroidism; K12.0 Recurrent oral aphthae; M62.50 Muscle wasting and atrophy, not elsewhere classified, unspecified site; E88.09 Other disorders of plasma-protein metabolism, not elsewhere classified; Z68.20 Body mass index [BMI] 20.0-20.9, adult; I27.20 Pulmonary hypertension, unspecified; D72.829 Elevated white blood cell count, unspecified; I50.9 Heart failure, unspecified; E80.6 Other disorders of bilirubin metabolism; F43.20 Adjustment disorder, unspecified; F41.1 Generalized anxiety disorder; K70.30 Alcoholic cirrhosis of liver without ascites
CPT/HCPCS: 36415; 71045-TC; 71250-TC; 74181-TC; 76705-TC; 80048-TC; 80053-TC; 80061-TC; 80074; 80076-TC; 82140-TC; 82272-TC; 82962-TC; 83605-TC; 83690-TC; 83735-TC; 83880; 84100-TC; 84439-TC; 84443-TC; 84484-TC; 85025-TC; 85730-TC; 86644; 86645; 86694; 86695; 86696; 87040-TC; 87081-TC; 93307-TC; 93970-TC; 94799-TC; 97110-TC; 97116-TC; 97530-TC; C9113; G0378; G0480; J0282; J0456; J0696; J1160; J1940; J3475; J3490; J7030; J7050; J7060